=== PATIENT | female | born 1945 | race Caucasian/White ===

== ENCOUNTER → 2016-08-29 | Outpatient (CLI) | payer MEDICARE, OTHER ==
[~2016-08-29] MED LIST: ASPIR 8181 MG PO; BLOOD THINNER PO; CALTRATE 600+D1 EAC1 PO; CRESTOR20 MG PO; MEGACE TAB 40 M40 MG PO; NEURONTIN100 MG PO; NORCO 10-325 T1 EACH PO; PRINIVIL20 MG PO; TAB-A-VITE1 EACH PO; XYZAL5 MG PO
== END ==
LOC: MAMO 09:54 → CT 11:00
DX: Z12.31 Encounter for screening mammogram for malignant neoplasm of breast (principal); C50.419 Malignant neoplasm of upper-outer quadrant of unspecified female breast; R91.1 Solitary pulmonary nodule; R59.0 Localized enlarged lymph nodes; E86.0 Dehydration
CPT/HCPCS: 36415; 71260; 82565; 84520; 96360; G0202; J7050; Q9962

== ENCOUNTER → 2016-09-13 | Outpatient (CLI) | payer MEDICARE, OTHER | LOC: MAMO 10:50 | DX: R92.8 Other abnormal and inconclusive findings on diagnostic imaging of breast (principal); Z98.890 Other specified postprocedural states; Z85.3 Personal history of malignant neoplasm of breast | CPT/HCPCS: 76641-LT; 76641-RT; G0206 ==

== ENCOUNTER → 2016-10-23 | Outpatient (CLI) | payer MEDICARE, OTHER | LOC: RAD 11:09 | DX: M51.9 Unspecified thoracic, thoracolumbar and lumbosacral intervertebral disc disorder (principal); M51.36 Other intervertebral disc degeneration, lumbar region; M47.892 Other spondylosis, cervical region; M47.894 Other spondylosis, thoracic region | CPT/HCPCS: 72050; 72072; 72110 ==

== ENCOUNTER → 2016-10-30 | Outpatient (CLI) | payer MEDICARE, OTHER ==
[2016-10-30 11:42] LABS: HEMOGLOBIN 11.6 gm/dl (12.3-15.3); RED BLOOD COUNT 3.82 M/UL (4.00-5.10); WHITE BLOOD COUNT 11.7 K/UL (4.5-11.0)
== END ==
LOC: CT 10:00
PROVIDERS: Radiology Diagnostic Radiology
DX: C50.419 Malignant neoplasm of upper-outer quadrant of unspecified female breast (principal); R91.1 Solitary pulmonary nodule
CPT/HCPCS: 71250; 85027; 85610